=== PATIENT | male | born 1960 | race Caucasian/White ===

== ENCOUNTER → 2016-12-21 | Day surgery (SDC) | payer OTHER ==
[~2016-12-21] VITALS: Ht 165.1 cm; Wt 72.6 kg
[~2016-12-21] MED LIST: 0.9% Sodium Chloride 1,000 ML IV SCH; Sodium Chloride LOK Flush 10 mL Syringe IV PRN; fentaNYL-PF 50 mCg/mL 2 mL Inj IVPUSH PRN
[2016-12-21 09:25] VITALS: BP 127/81; PULSE 59; RESP 12; O2SAT 95
[2016-12-21 10:34] VITALS: BP 112/72; PULSE 60; RESP 14; O2SAT 96
[2016-12-21 10:39] VITALS: BP 103/65; PULSE 57; RESP 14; O2SAT 95
[2016-12-21 10:49] VITALS: BP 117/76; PULSE 61; RESP 14; O2SAT 95
--- NOTE | 2016-12-22 15:25 | PATH ---
SURGICAL PATHOLOGY Attending Physician:Heidy Jhaveri CASE STATUS: Signed Out PATIENT NAME: NURIS OWENS PID: [id number] : 1960 DATE COLLECTED:12/21/2016 18:46 SPECIMEN: Colon, Polyp CLINICAL HISTORY: 1). DESCENDING POLYP X 1 FINAL DIAGNOSIS: 1.DESCENDING POLYP, BIOPSY: TUBULAR ADENOMA. ICD10 D12.6 GROSS DESCRIPTION: The specimen is received in one formalin filled container labeled with the patient's name, sublabeled "descending polyp x1" and consists of a 0.3-0.2 x 0.2 CM portion of tissue which is entirely submitted in one cassette. 12/21/2016DC MICRO DESCRIPTION: See diagnosis. ICD-9 CODES: CPT CODES: 1: 91743 Electronically Signed Out Abhishek Odonnell MD [facility] Pathology [facility], [place] [address] Technical component performed at [facility], [address] [place] [address] Ave[address], [place], [address]
--- NOTE | 2016-12-27 14:06 | ENDO ---
[address] [address] ENDOSCOPY PROCEDURE PATIENT: NURIS OWENS : 1960 MR#: [id number] ADMIT: 12/21/2016 JOB ID: [id number] DATE: 12/21/2016 PREOPERATIVE DIAGNOSIS(ES): Colorectal cancer screening. POSTOPERATIVE DIAGNOSIS(ES): Colonoscopy to cecum with snare polypectomy with cautery. SURGEON: Ariel Jeffery M.D. INDICATIONS: A 56-year-old man who is here for colorectal cancer screening, and after discussing colonoscopy including risks, informed consent was obtained, a time out was called and he agreed to proceed. FINDINGS: He had a good prep. The scope was advanced to the cecum with clear visualization of the appendiceal orifice and ileocecal valve. As the scope was withdrawn slowly using suction and irrigation as necessary, a solitary descending colon polyp was identified, removed with a snare with cautery and retrieved and submitted to Pathology. DESCRIPTION OF PROCEDURE: The procedure and sedation plan was discussed with the patient and nursing staff. A procedural time-out was held. He received 5 mg of Versed and 100 mcg of fentanyl. The Olympus PCF H 180 AL video colonoscope was passed transanally, advanced to the cecum, withdrawn with results and procedures as discussed above. There were no apparent complications. IMPRESSION: Probable adenomatous polyp in the descending colon. RECOMMENDATIONS: Repeat colonoscopy in five years.
== END | disposition home or self-care (01) ==
LOC: END 01:04
PROVIDERS: ATTEND Surgery
DX: Z12.11 Encounter for screening for malignant neoplasm of colon (principal); D12.4 Benign neoplasm of descending colon; Z80.0 Family history of malignant neoplasm of digestive organs; E78.5 Hyperlipidemia, unspecified; Z87.891 Personal history of nicotine dependence
CPT/HCPCS: 45385; 99153; G0500; J2250; J3010; J7030